=== PATIENT | female | born 1975 | race Caucasian/White ===

== ENCOUNTER 2019-09-29 19:52 | Emergency (ER) | payer MEDICAID, OTHER ==
[~2019-09-29] VITALS: Ht 165.1 cm; Wt 74.4 kg
[~2019-09-29 19:52] MED LIST: DOCU250C4 PO; HYDR25SU37 RC; SULF1TAB12 PO
[2019-09-29 20:05] VITALS: BP 130/79
--- NOTE | 2019-09-29 20:12 | NUR ---
PT PROVIDED URINE SPECIMEN. [facility]
--- NOTE | 2019-09-29 20:50 | NUR ---
PT CALLED IN LOBBY AND OUTSIDE WITH NO ANSWER
--- NOTE | 2019-09-29 20:55 | NUR ---
PT CALLED IN LOBBY AND OUTSIDE WITH NO ANSWER
--- NOTE | 2019-09-29 21:00 | NUR ---
PT CALLED IN LOBBY AND OUTSIDE WITH NO ANSWER. PATIENT LEFT WITHOUT BEING SEEN BY DR. PATRICIA. NO FURTHER CARE PROVIDED FOR PATIENT.
== END 2019-09-29 20:50 | disposition left against medical advice (07) ==
LOC: MED 19:52
DX: O26.91 Pregnancy related conditions, unspecified, first trimester (principal); R10.9 Unspecified abdominal pain; Z53.21 Procedure and treatment not carried out due to patient leaving prior to being seen by health care provider

== ENCOUNTER 2019-10-20 15:11 | Emergency (ER) | payer MEDICAID ==
[~2019-10-20] VITALS: Ht 165.1 cm; Wt 75.0 kg
[2019-10-20 15:23] VITALS: BP 134/76
--- NOTE | 2019-10-20 16:10 | NUR ---
, 9 WEEKS AOG C/O VAGINAL BLEEDING 30 MINS AGO, WITH 2 HEAVILY SOAKED PADS +DYSURIA, +ABDOMINAL PAIN 01/24.PT AWAKE ,ALERT , AFIBRILE.AMBULATORY WITH STAEDY GAIT . SOFT NABS , NONTENDER ABDOMEN. PMH: NONE MEDS: NKA
--- NOTE | 2019-10-20 16:31 | NUR ---
PATITO AT BEDSIDE.
[2019-10-20 16:41] LABS: BASOPHILS % (AUTO) 0.2 % (0.0-2.0); EOSINOPHILS # (AUTO) 0.1 K/uL (0-0.4); EOSINOPHILS % (AUTO) 1.1 % (0.0-4.0); HEMATOCRIT 35.4 % (36-48); HEMOGLOBIN 12.5 g/dL (12.0-16.0); LYMPHOCYTES # (AUTO) 1.1 K/uL (2.5-16.5); LYMPHOCYTES % (AUTO) 13.5 % (20.5-51.1); MEAN CORPUSCULAR HEMOGLOBIN 30 pg (27-31); MEAN CORPUSCULAR HGB CONC 35 g/dL (33-37); MONOCYTES # (AUTO) 0.8 K/uL (0.8-1.0); NEUTROPHILS # (AUTO) 6.5 K/uL (1.8-7.7); NEUTROPHILS % (AUTO) 76.2 % (42.2-75.2); PLATELET COUNT (AUTO) 169 K/uL (140-450); RED BLOOD CELL COUNT(AUTO) 4.11 MIL/uL (4.20-5.40); RED CELL DISTRIBUTION WIDTH 13.8 % (11.6-13.7); WHITE BLOOD COUNT (AUTO) 8.5 K/uL (4.8-10.8)
[2019-10-20 17:21] LABS: APPEARANCE,URINE CLEAR (CLEAR); BILIRUBIN,URINE NEGATIVE (NEGATIVE); BLOOD, URINE TRACE-I (NEGATIVE); COLOR,URINE YELLOW (YELLOW); LEUKOCYTE ESTERASE ,URINE NEGATIVE (NEGATIVE); NITRITE, URINE NEGATIVE (NEGATIVE); UGLUCOSE NEGATIVE (NEGATIVE)
--- NOTE | 2019-10-20 17:25 | NUR ---
DR MAGANA AT BEDSIDE EVALUATING PT.
--- NOTE | 2019-10-20 18:02 | NUR ---
Patient discharged with v/s stable. Written and verbal after care instructions given and explained regarding missed . Patient alert, oriented and verbalized understanding of instructions. Ambulatory with steady gait. All questions addressed prior to discharge. ID band removed. Patient advised to follow up with PMD. Rx of zofran given. Patient educated on indication of medication including possible reaction and side effects. Opportunity to ask questions provided and answered.
[2019-10-20 18:03] VITALS: BP 130/70
== END 2019-10-20 18:02 | disposition home or self-care (01) ==
LOC: MED 15:11
DX: O20.0 Threatened abortion (principal); Z3A.11 11 weeks gestation of pregnancy; Z79.899 Other long term (current) drug therapy
CPT/HCPCS: 36415; 76801; 81003; 81025; 84702; 85025; 86900; 86901; 99284; Q0092

== ENCOUNTER 2020-01-15 22:30 | Observation (INO) | payer MEDICAID ==
[2020-01-14 23:14] VITALS: BP 111/82
[~2020-01-15] VITALS: Ht 165.1 cm; Wt 80.3 kg
[2020-01-15] MEDS ORDERED: MORPHINE SULFATE 4 MG/ML SYR IVP PRN (23:40)
[2020-01-15] MEDS ORDERED: MORPHINE SULFATE 10 MG/ML VIAL ONE (23:57)
[2020-01-16] LABS: BASOPHILS # (AUTO) 0.1 K/uL (0.00-0.22); BASOPHILS % (AUTO) 0.6 % (0.0-2.0); EOSINOPHILS # (AUTO) 0.1 K/uL (0-0.4); EOSINOPHILS % (AUTO) 0.8 % (0.0-4.0); HEMATOCRIT 36.6 % (36-48); HEMOGLOBIN 12.3 g/dL (12.0-16.0); LYMPHOCYTES # (AUTO) 1.4 K/uL (2.5-16.5); LYMPHOCYTES % (AUTO) 10.7 % (20.5-51.1); MEAN CORPUSCULAR HEMOGLOBIN 31 pg (27-31); MEAN CORPUSCULAR HGB CONC 34 g/dL (33-37); MEAN CORPUSCULAR VOLUME 90.7 fL (80-94); MONOCYTES % (AUTO) 7.5 % (1.7-9.3); NEUTROPHILS # (AUTO) 10.6 K/uL (1.8-7.7); NEUTROPHILS % (AUTO) 80.4 % (42.2-75.2); PLATELET COUNT (AUTO) 152 K/uL (140-450); RED BLOOD CELL COUNT(AUTO) 4.03 MIL/uL (4.20-5.40); RED CELL DISTRIBUTION WIDTH 14.1 % (11.6-13.7); WHITE BLOOD COUNT (AUTO) 13.1 K/uL (4.8-10.8)
[2020-01-16] MEDS ORDERED: BETAMETH ACET/BETAMETH NA PH 30 MG/5 ML VIAL IM SCH (00:10)
[2020-01-16 00:11] LABS: ALBUMIN 2.8 g/dL (3.4-5.0); CARBON DIOXIDE 22.7 mmol/L (21-32); CREATININE 0.5 mg/dL (0.6-1.3); POTASSIUM 3.7 mmol/L (3.5-5.1); TOTAL BILIRUBIN 0.3 mg/dL (0.0-1.0)
[2020-01-16 00:13] LABS: APPEARANCE,URINE CLEAR (CLEAR); BILIRUBIN,URINE NEGATIVE (NEGATIVE); BLOOD, URINE NEGATIVE (NEGATIVE); COLOR,URINE YELLOW (YELLOW); LEUKOCYTE ESTERASE ,URINE TRACE (NEGATIVE); NITRITE, URINE NEGATIVE (NEGATIVE); PH,URINE 5.5 (5.0-9.0); UGLUCOSE NEGATIVE (NEGATIVE)
[2020-01-16] MEDS ORDERED: LACTATED RINGERS 1,000 ML IV SCH (00:25)
[2020-01-16 00:44] LABS: PROTHROMBIN TIME 9.6 secs (10.8-13.4)
[2020-01-16 00:55] LABS: RBC,URINE 0-5 /HPF (0-5); WBC,URINE 0-5 /HPF (0-5)
[2020-01-16] MEDS ORDERED: MORPHINE SULFATE 10 MG/ML VIAL ONE ×2 (01:29→04:28)
[2020-01-16] MEDS ORDERED: MORPHINE SULFATE 4 MG/ML SYR IVP PRN (01:30)
[2020-01-16] MEDS ORDERED: BETAMETH ACET/BETAMETH NA PH 30 MG/5 ML VIAL IM ONE (01:40)
[2020-01-16] MEDS ORDERED: PREN-380 PO (03:29)
[2020-01-16 04:36] VITALS: BP 126/73
[2020-01-16] MEDS ORDERED: OXYTOCIN 20 UNITS/LR PREMIX 1,000 ML IV ONE (05:35)
[2020-01-16] MEDS ORDERED: SIMETHICONE 80 MG TAB.CHEW PO PRN (06:20)
[2020-01-16] MEDS ORDERED: IBUPROFEN 800 MG TAB PO PRN (06:20)
[2020-01-16] MEDS ORDERED: DOCUSATE SODIUM 100 MG GELCAP PO PRN (06:20)
[2020-01-16] MEDS ORDERED: BENZOCAINE/MENTHOL 20%-0.5% 60 GM CAN TP PRN (06:20)
[2020-01-16] MEDS ORDERED: BISACODYL 5 MG TABEC PO PRN (06:20)
[2020-01-16] MEDS ORDERED: METHYLERGONOVINE 0.2 MG TAB PO PRN (06:20)
[2020-01-16] MEDS ORDERED: METHYLERGONOVINE 0.2 MG/ML AMP IM PRN (06:20)
[2020-01-16] MEDS ORDERED: OXYTOCIN 10 UNITS/ML VIAL IM PRN (06:20)
[2020-01-16] MEDS ORDERED: MEASLES, MUMPS, AND RUBELLA 1 VIAL SQVAC PRN (06:20)
[2020-01-16] MEDS ORDERED: IBUPROFEN 600 MG TAB PO PRN ×2 (06:20)
--- NOTE | 2020-01-16 09:34 | NUR ---
PATIENT HAS BEEN SCREENED AND CATEGORIZED LOW NUTRITION RISK. PATIENT WILL BE SEEN WITHIN 7 DAYS OF ADMISSION. 01/22/[address]
[2020-01-16] MEDS ORDERED: oxyCODONE/APAP 5/325 MG 1 TAB TAB PO PRN (09:50)
--- NOTE | 2020-01-16 12:25 | NUR ---
[employer] SAND NOTE: SW MET WITH PATIENT AT BEDSIDE TO PROVIDE MORTUARY AND BEREAVEMENT RESOURCES. PATIENT WAS KYRGYZ SPEAKING. SW USED [employer]IPE [employer] - [employer] [id number]. SW SPOKE WITH PATIENT AND PROVIDED COUNSELING WITH PATIENT. PATIENT'S SIGNIFICANT OTHER WAS PRESENT. PATIENT REQUESTED ASSISTANCE WITH MORTUARIES. SW PROVIDED LOCAL MORTUARY RESOURCES AND REFERRED PATIENT TO [facility] FOR ADDITIONAL ASSISTANCE. SW WENT OVER RESOURCES WITH PATIENT. PATIENT VERBALIZED UNDERSTANDING AND STATED SHE WOULD CONTACT MORTUARIES. PATIENT ALSO REQUESTED AN ADDITIONAL VOLUNTARY PATERNAL DECLARATION. SW INFORMED NURSE WHO STATED SHE WOULD PROVIDE PATIENT WITH ADDITIONAL FORM. SW WILL FOLLOW UP NEEDED.
[2020-01-16 14:28] LABS: HEMATOCRIT 33.1 % (36-48); HEMOGLOBIN 11.1 g/dL (12.0-16.0)
[2020-01-18 06:09] LABS: CHLAMYDIA TRACHOMATIS AMP DNA Negative (Negative)
== END 2020-01-16 19:00 | disposition home or self-care (01) ==
LOC: MLD 22:30 → INTOOBSV 23:14 → OBSVTOIN 23:14 → MLD 01-16 04:56 → MFCC 01-16 13:50
PROVIDERS: ADMIT Obstetrics & Gynecology; ATTEND Obstetrics & Gynecology
DX: O60.12X0 Preterm labor second trimester with preterm delivery second trimester, not applicable or unspecified (principal); O41.1220 Chorioamnionitis, second trimester, not applicable or unspecified; Z37.9 Outcome of delivery, unspecified; Z3A.23 23 weeks gestation of pregnancy
CPT/HCPCS: 36415; 76805; 76817; 80053; 81001; 85018; 85025; 85610; 85730; 86703; 86706; 86886; 86900; 86901; 87086; 87210; 87491; 88305; 96372; G0378; J0702; J2270; J2590; J7120; Q0092; 59409; 86702; 99440